=== PATIENT | male | born 1955 | race Caucasian/White ===

== ENCOUNTER → 2023-09-23 17:03 | Outpatient (REF) | payer MEDICARE, BC, SELFPAY | LOC: PAVMRI 17:03 | PROVIDERS: ATTENDING PHYSICIAN Physician Assistant Surgical; FAMILY PHYSICIAN Internal Medicine | DX: M25.552 Pain in left hip (principal) | CPT/HCPCS: 73721 ==

== ENCOUNTER 2024-08-09 06:16 | Day surgery (SDC) | payer MEDICARE, BC, SELFPAY | END 2024-08-09 13:13 | disposition home or self-care (01) | LOC: GI 06:16 | PROVIDERS: ATTENDING PHYSICIAN Internal Medicine Gastroenterology | DX: Z12.11 Encounter for screening for malignant neoplasm of colon (principal); K64.8 Other hemorrhoids; K57.30 Diverticulosis of large intestine without perforation or abscess without bleeding; Z86.0100 Personal history of colon polyps, unspecified | CPT/HCPCS: G0105 ==